=== PATIENT | male | born 1940 | race Caucasian/White ===

== ENCOUNTER → 2023-07-07 09:26 | Outpatient (REF) | payer MEDICARE, SELFPAY ==
[2023-07-07 11:12] LABS: Hematocrit 51.8 % (39.0-52.0); Hemoglobin 17.9 g/dL (13.0-18.0); Mean Corp Hgb Conc. 34.6 g/dL (33.0-37.0); Mean Corpuscular Hgb 30.7 pg (27.0-31.0); Mean Corpuscular Volume 88.7 fL (80.0-94.0); Mean Platelet Volume 10.3 fL (7.4-10.4); Platelet Count 157 10^3/uL (130-400); Red Blood Cell Count 5.84 10^6/uL (4.70-6.10); Red Cell Dist. Width 13.2 % (11.5-14.5); White Blood Cell Count 6.9 10^3/uL (4.8-10.8)
[2023-07-07 11:35] LABS: ALT (SGPT) 14 U/L (0-50); AST (SGOT) 15 U/L (17-59); Albumin 4.2 g/dl (3.5-5.0); Alkaline Phosphatase 85 U/L (38-126); Blood Urea Nitrogen 26 mg/dl (9-20); Calcium 10.3 mg/dl (8.4-10.2); Carbon Dioxide 29 mmol/L (22-30); Chloride 102 mmol/L (98-107); Glucose 152 mg/dl (70-99); HDL Cholesterol 45 mg/dl; LDL Cholesterol, Calculated 81 mg/dl; Potassium 4.6 mmol/L (3.5-5.1); Sodium 141 mmol/L (135-145); Total Bilirubin 0.8 mg/dl (0.2-1.3); Total Cholesterol 175 mg/dl (50-199); Total Protein 6.7 g/dl (6.3-8.2); Triglyceride 245 mg/dl (10-149); Very Low Density Lipoprotein 49 mg/dl (0-30); eGFR > 60.00
[2023-07-07 12:16] LABS: Glycohemoglobin (HgbA1c) 7.4 % (4.0-5.6)
== END ==
LOC: REG 09:26
PROVIDERS: ATTENDING PHYSICIAN Internal Medicine Endocrinology, Diabetes & Metabolism; FAMILY PHYSICIAN Family Medicine
DX: E29.1 Testicular hypofunction (principal); E11.9 Type 2 diabetes mellitus without complications
CPT/HCPCS: 36415; 80053; 80061; 83036; 84403; 85027

== ENCOUNTER 2023-11-14 05:27 | Emergency (ER) | payer MEDICARE, SELFPAY ==
[2023-11-14 05:30] VITALS: BP 144/73
--- NOTE | 2023-11-14 06:16 | ED.GENMED ---
History of Present Illness
General
Chief Complaint: Abdominal Pain
Source: patient
Exam Limitations: none
Time Seen by Provider: 11/14/23 06:01
Nursing documentation reviewed up to this point in time: agreed with
History of Present Illness
History of Present Illness:
83-year-old male presents to the emergency department complaining of right lower quadrant abdominal pain right flank pain for the past 4 weeks. It was worse this morning. He has not seen his doctor for this.
Past History
Past History
ED Past Medical History: HTN and NIDDM
ED Past Surgical History: Orthopedic (Back surgery) and Other (thyroid, hernia surgery)
Social History
Tobacco: Former smoker
Alcohol: None
Drug: None
Personal:
Living: with family
Employment: Retired
Review of Systems
Review of Systems
Allergies reviewed?: Yes
All Other Systems: Not applicable
Constitutional: Reports no symptoms
EENT: Reports no symptoms
Respiratory: Reports no symptoms
Cardiac: Reports no symptoms
ABD/GI: Reports abdominal pain and constipated
: Reports no symptoms
Musculoskeletal: Reports no symptoms
Skin: Reports no symptoms
Neurological: Reports no symptoms
Endocrine: Reports no symptoms
Hematologic/Lymphatic: Reports no symptoms
Psychiatric: Reports no symptoms
Phy Exam
Physical Exam
Physical Exam:
Physical Exam
General: no apparent distress, not acutely ill
Neck: supple. no meningeal signs. normal posterior pharynx
Heart: s1/s2 regular rate and rhythm, no murmur. equal radial
pulses.
HEENT: Pupils equal round reactive to light, EOMI
Lungs: no acute respiratory distress. clear bilaterally
Abdomen: normal bowel sounds. not tender. no CVAT
Neuro: alert and oriented. no focal neurological deficits
Skin: no rash
Psychiatric: well kept. interactive and cooperative
Extremities: no edema. no calf tenderness. negative homans. good distal pulses
Course
Orders/Labs/Results
Orders:
Orders
11/14/23 06:12
Iohexol [Omnipaque] See Protocol PO NOW STA
11/14/23 06:14
CT Abd/pel W Iv And Oral Contr Urgent
Comment:
Reason For Exam: rlq abdominal pain
11/14/23 06:39
Complete Blood Count/With Diff Urgent
Comprehensive Metabolic Panel Urgent
Lipase Urgent
Urinalysis Reflex To Culture Urgent
Date Specimen was Collected: 11/14/23
Time Specimen was Collected: 06:29
Urine Microscopic Reflex Cult Urgent
Urine Culture Urgent
JANELL Source: U
Specimen Description:
Date Specimen was Collected: 11/14/23
Time Specimen was Collected: 06:29
11/14/23 07:36
0.9% Sodium Chloride 1000 ml [Nss] 1,000 ml IV BOLUS
11/14/23 10:14
LevoFLOXacin [Levaquin] 500 mg PO NOW STA
Sodium Zirconium Cyclosilicate [Lokelma] 5 gram PO NOW STA
Abnormal Lab Results
11/14/23
06:39
Absolute Lymphs (auto) 0.7 L 10^3/uL
(1.2-3.4)
Neutrophils % 83.5 H %
(42.2-75.2)
Lymphocytes % 9.0 L %
(20.5-51.1)
Potassium 5.5 H mmol/L
(3.5-5.1)
BUN 33 H mg/dl
(9-20)
Creatinine 1.4 H mg/dL
(0.7-1.3)
Glucose 172 H mg/dl
(70-99)
Total Protein 6.2 L g/dl
(6.3-8.2)
Leukocyte Esterase Rfl 1+ A
(Negative)
Urine WBC (Reflex) 70-80 A /HPF
(0-5)
Urine Bacteria (Reflex) Many A
(Negative)
11/14/23 06:39
11/14/23 06:39
Vital Signs
Initial and Last Documented VS:
Initial Vital Signs
Temp Pulse Resp BP Pulse Ox
99.1 F 112 20 144/73 92
11/14/23 05:30 11/14/23 05:30 11/14/23 05:30 11/14/23 05:30 11/14/23 05:30
Last Documented Vital Signs
Temp Pulse Resp BP Pulse Ox
99.1 F 92 18 137/63 93
11/14/23 05:30 11/14/23 11:02 11/14/23 11:02 11/14/23 11:02 11/14/23 11:02
MDM/Problems Addressed
Differential Diagnosis Includes:
Kidney stone, appendicitis, diverticulitis, UTI
MDM/Problems Addressed:
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 Discussed with Dr. Deal, nephrology who recommend Lokelma 5, hold losartan and follow-up with primary care. Treat with Levaquin.
Chronic conditions affecting care: HTN
Acute Exacerbation and/or Progression of Chronic Illness: HTN
*Radiology
Radiology exam reviewed: radiology read reviewed (CT abdomen pelvis shows an pancreas cyst, chronic perinephric stranding bilateral)
*Pulse Oximetry
Patient hypoxic: no
*Driver Medic Interpretation
Rate: normal
Interpretation: normal
Heart Rate: 80
Rhythm: sinus
*Critical Care Note
Total Time (30-74mins, 75-104mins- exclusive of procedures): Not Applicable
Data Reviewed
Review of Other/Old Records Reveals: Labs (Prior potassium 4.6 on 07/07/2023) and Radiology Studies
Patient Management
Social determinants of health affecting care: Living situation
Discussion with other providers: Hybrid Tester (Nephrology, Dr. Deal)
Escalation/DeEscalation of care consider admission/obs:
Admit not indicated
ED Attending Note
-
Portions of this chart may have been created with voice recognition software.� Occasional wrong word or��sound alike� substitutions may have occurred due to the inherent limitations of voice recognition software.
Discharge Plan
Departure
Patient Disposition: Home (Routine Discharge)
Date of Disposition: 11/14/23
Time of Disposition: 10:17
Patient with high blood pressure during this ER visit?: Yes
Condition: Good
Discharge Problem:
Urinary tract infection, Acute hyperkalemia, Pancreas cyst
Instructions: Urinary Tract Infection, Adult ED, Hyperkalemia, Abdominal Pain, BLOOD PRESSURE
Prescriptions:
New
levofloxacin 500 mg tablet
500 mg PO DAILY 6 Days Qty: 6 0RF
No Action
losartan 50 MG tablet
100 mg PO DAILY
metformin 500 MG tablet
500 mg PO TID
glimepiride 1 MG tablet
1 mg PO BID
levothyroxine 75 MCG tablet
75 mcg PO DAILY
testosterone propionate 100 MG/ML oil
0 mg IM Q2W
hydrochlorothiazide 25 MG tablet
25 mg PO DAILY
Referrals:
Israel Powell MD [Family Provider] - Call in 1-3 days for appt
Activity Restrictions/Additional Instructions:
You have a urinary tract infection and your potassium was slightly elevated. Take Levaquin, the antibiotic that I prescribed for the next 6 days. Stop taking losartan have your primary care doctor recheck your potassium next week. Your potassium
was 5.[address] scan showed a possible cyst in your pancreas that was 11 mm. You will need to get a follow-up CT scan or an MRI in 1 year, ordered by your primary care doctor.
Interventions
Interventions:
*Risk Screen - Suicide Last Done: 11/14/23 05:30
*General Assessment Last Done: 11/14/23 05:30
*Neglect/Abuse Screening Last Done: 11/14/23 05:30
ED- Fall Risk Assessment Last Done: 11/14/23 05:30
*ED COVID-19 Vaccine History Last Done: 11/14/23 05:30
*Nursing Disposition Last Done: 11/14/23 11:11
CX-Diocum-Xgktjkhgzz Assessment Last Done: 11/14/23 06:48
Discharge Date and Time
Discharge Date/Time: 11/14/23 11:07
Print Language: MAORI
[2023-11-14] MEDS: OMNIPAQUE 50 ML PO (06:45)
[2023-11-14 06:48] VITALS: BMI 23.8
[2023-11-14 06:51] LABS: % Basophils 0.4 % (0-2); % Eosinophils 0.3 % (0-6); % Immature Granulocytes 0.5 % (0-0.5); % Monocytes 6.3 % (1.7-9.3); % Neutrophils 83.5 % (42.2-75.2); Absolute Lymphocytes 0.7 10^3/uL (1.2-3.4); Absolute Monocytes 0.5 10^3/uL (0.1-0.6); Absolute Neutrophils 6.5 10^3/uL (1.4-6.5); Hematocrit 46.2 % (39.0-52.0); Hemoglobin 16.3 g/dL (13.0-18.0); Mean Corp Hgb Conc. 35.3 g/dL (33.0-37.0); Mean Corpuscular Hgb 30.5 pg (27.0-31.0); Mean Corpuscular Volume 86.4 fL (80.0-94.0); Mean Platelet Volume 10.1 fL (7.4-10.4); Nucleated Red Blood Cells % 0 % (-); Platelet Count 155 10^3/uL (130-400); Red Blood Cell Count 5.35 10^6/uL (4.70-6.10); Red Cell Dist. Width 12.3 % (11.5-14.5); White Blood Cell Count 7.8 10^3/uL (4.8-10.8)
[2023-11-14 07:01] LABS: ALT (SGPT) 13 U/L (0-50); AST (SGOT) 17 U/L (17-59); Albumin 4.1 g/dl (3.5-5.0); Alkaline Phosphatase 72 U/L (38-126); Blood Urea Nitrogen 33 mg/dl (9-20); Calcium 9.7 mg/dl (8.4-10.2); Carbon Dioxide 29 mmol/L (22-30); Chloride 104 mmol/L (98-107); Estimated Creatinine Clearance 42 ml/min; Glucose 172 mg/dl (70-99); Lipase 61 U/L (23-300); Potassium 5.5 mmol/L (3.5-5.1); Sodium 139 mmol/L (135-145); Total Protein 6.2 g/dl (6.3-8.2); eGFR 49.87
[2023-11-14] MEDS: NSS 1000 IV (08:09)
[2023-11-14 08:25] VITALS: BP 118/89
[2023-11-14 08:37] LABS: Urine Albumin Trace (Neg - Trace); Urine Bilirubin Negative (Negative); Urine Character Clear (Clear); Urine Color Yellow; Urine Glucose Negative (Negative); Urine Ketone Negative (Negative); Urine Leukocyte 1+ (Negative); Urine Nitrite Negative (Negative); Urine Occult Blood Negative (Negative); Urine Urobilinogen Negative (Neg - 1+)
[2023-11-14 09:52] LABS: Urine Amorphous Seen; Urine Bacteria Many (Negative); Urine Red Blood Cell 0-2 /HPF (0-2); Urine White Cell 70-80 /HPF (0-5)
[2023-11-14] MEDS: LOKELMA 5 GRAM PO (10:54)
[2023-11-14] MEDS: LEVAQUIN 500 MG PO (10:54)
[2023-11-14 11:02] VITALS: BP 137/63
== END 2023-11-14 11:07 | disposition home or self-care (01) ==
LOC: EMR 05:27
PROVIDERS: EMERGENCY PHYSICIAN Emergency Medicine; FAMILY PHYSICIAN Family Medicine
DX: N39.0 Urinary tract infection, site not specified (principal); E87.5 Hyperkalemia; K86.2 Cyst of pancreas; I10 Essential (primary) hypertension; E11.9 Type 2 diabetes mellitus without complications; Z87.891 Personal history of nicotine dependence
CPT/HCPCS: 99284; 96360; 74177; 80053; 81003; 81015; 83690; 85025; 87077; 87086; 87186; Q9967

== ENCOUNTER → 2023-12-22 09:24 | Outpatient (REF) | payer MEDICARE, SELFPAY ==
[2023-12-22 10:57] LABS: Hematocrit 48.1 % (39.0-52.0); Hemoglobin 16.6 g/dL (13.0-18.0); Mean Corp Hgb Conc. 34.5 g/dL (33.0-37.0); Mean Corpuscular Hgb 30.8 pg (27.0-31.0); Mean Corpuscular Volume 89.2 fL (80.0-94.0); Mean Platelet Volume 10.5 fL (7.4-10.4); Platelet Count 160 10^3/uL (130-400); Red Blood Cell Count 5.39 10^6/uL (4.70-6.10); Red Cell Dist. Width 13.1 % (11.5-14.5); White Blood Cell Count 5.8 10^3/uL (4.8-10.8)
[2023-12-22 12:02] LABS: Glycohemoglobin (HgbA1c) 6.9 % (4.0-5.6)
[2023-12-22 12:03] LABS: ALT (SGPT) 14 U/L (0-50); AST (SGOT) 22 U/L (17-59); Albumin 4.4 g/dl (3.5-5.0); Alkaline Phosphatase 87 U/L (38-126); Blood Urea Nitrogen 24 mg/dl (9-20); Calcium 10.2 mg/dl (8.4-10.2); Carbon Dioxide 28 mmol/L (22-30); Chloride 103 mmol/L (98-107); Glucose 126 mg/dl (70-99); HDL Cholesterol 51 mg/dl; LDL Cholesterol, Calculated 91 mg/dl; Potassium 5.4 mmol/L (3.5-5.1); Sodium 144 mmol/L (135-145); Total Bilirubin 0.9 mg/dl (0.2-1.3); Total Cholesterol 169 mg/dl (50-199); Total Protein 6.7 g/dl (6.3-8.2); Triglyceride 138 mg/dl (10-149); Very Low Density Lipoprotein 27 mg/dl (0-30); eGFR 54.51
[2023-12-22 12:19] LABS: PSA, Total - Diagnostic 3.12 ng/ml (0.0-4.0)
== END ==
LOC: REG 09:24
PROVIDERS: ATTENDING PHYSICIAN Internal Medicine Endocrinology, Diabetes & Metabolism; FAMILY PHYSICIAN Family Medicine; REFERRING PHYSICIAN Specialist
DX: E29.1 Testicular hypofunction (principal); E11.9 Type 2 diabetes mellitus without complications; R97.20 Elevated prostate specific antigen [PSA]
CPT/HCPCS: 36415; 80053; 80061; 83036; 84153; 84403; 85027

== ENCOUNTER → 2024-05-03 12:22 | Outpatient (REF) | payer MEDICARE, SELFPAY ==
[2024-05-03 17:44] LABS: Microalbumin, Random Urine 12.7 mg/dl (0.6-1.7); Microalbumin/creatinine Ratio 119.9 mg/g
== END ==
LOC: CLAB 12:22
PROVIDERS: ATTENDING PHYSICIAN Family Medicine
DX: E11.9 Type 2 diabetes mellitus without complications (principal)
CPT/HCPCS: 82043; 82570

== ENCOUNTER → 2024-06-24 08:43 | Outpatient (REF) | payer MEDICARE, SELFPAY ==
[2024-06-24 09:22] LABS: Hematocrit 49.8 % (39.0-52.0); Mean Corp Hgb Conc. 32.1 g/dL (33.0-37.0); Mean Corpuscular Hgb 30.6 pg (27.0-31.0); Mean Corpuscular Volume 95.2 fL (80.0-94.0); Mean Platelet Volume 10.2 fL (7.4-10.4); Platelet Count 147 10^3/uL (130-400); Red Blood Cell Count 5.23 10^6/uL (4.70-6.10); Red Cell Dist. Width 14.1 % (11.5-14.5); White Blood Cell Count 6.1 10^3/uL (4.8-10.8)
[2024-06-24 11:37] LABS: ALT (SGPT) 18 U/L (0-50); AST (SGOT) 18 U/L (17-59); Albumin 4.3 g/dl (3.5-5.0); Alkaline Phosphatase 89 U/L (38-126); Blood Urea Nitrogen 26 mg/dl (9-20); Calcium 9.9 mg/dl (8.4-10.2); Carbon Dioxide 26 mmol/L (22-30); Chloride 102 mmol/L (98-107); Glucose 106 mg/dl (70-99); HDL Cholesterol 40 mg/dl; LDL Cholesterol, Calculated 66 mg/dl; Potassium 4.9 mmol/L (3.5-5.1); Sodium 139 mmol/L (135-145); Total Cholesterol 146 mg/dl (50-199); Total Protein 6.6 g/dl (6.3-8.2); Triglyceride 200 mg/dl (10-149); Very Low Density Lipoprotein 40 mg/dl (0-30); eGFR 59.63
[2024-06-24 12:03] LABS: TSH 2.97 uIU/ml (0.47-4.68)
[2024-06-24 12:37] LABS: Glycohemoglobin (HgbA1c) 6.7 % (4.0-5.6)
== END ==
LOC: REG 08:43
PROVIDERS: ATTENDING PHYSICIAN Internal Medicine Endocrinology, Diabetes & Metabolism; FAMILY PHYSICIAN Family Medicine
DX: E29.1 Testicular hypofunction (principal); E11.9 Type 2 diabetes mellitus without complications; E89.0 Postprocedural hypothyroidism
CPT/HCPCS: 36415; 80053; 80061; 83036; 84403; 84443; 85027

== ENCOUNTER → 2024-09-30 08:49 | Outpatient (REF) | payer MEDICARE, SELFPAY ==
[2024-09-30 13:04] LABS: Blood Urea Nitrogen 29 mg/dl (9-20); Carbon Dioxide 27 mmol/L (22-30); Chloride 110 mmol/L (98-107); Glucose 126 mg/dl (70-99); Potassium 4.8 mmol/L (3.5-5.1); Sodium 143 mmol/L (135-145); eGFR 54.17
== END ==
LOC: REG 08:49
PROVIDERS: ATTENDING PHYSICIAN Physician Assistant; FAMILY PHYSICIAN Family Medicine
DX: K86.2 Cyst of pancreas (principal)
CPT/HCPCS: 36415; 80048

== ENCOUNTER → 2024-10-05 10:35 | Outpatient (REF) | payer MEDICARE, SELFPAY | LOC: RAD 10:35 | PROVIDERS: ATTENDING PHYSICIAN Physician Assistant; FAMILY PHYSICIAN Family Medicine | DX: K86.2 Cyst of pancreas (principal); K43.9 Ventral hernia without obstruction or gangrene | CPT/HCPCS: 74177; Q9967 ==

== ENCOUNTER → 2024-12-23 07:48 | Outpatient (REF) | payer MEDICARE, SELFPAY ==
[2024-12-23 09:00] LABS: Hematocrit 44.4 % (39.0-52.0); Hemoglobin 15.0 g/dL (13.0-18.0); Mean Corp Hgb Conc. 33.8 g/dL (33.0-37.0); Mean Corpuscular Volume 89.9 fL (80.0-94.0); Platelet Count 186 10^3/uL (130-400); Red Cell Dist. Width 13.0 % (11.5-14.5)
[2024-12-23 11:10] LABS: ALT (SGPT) 16 U/L (0-50); AST (SGOT) 16 U/L (17-59); Albumin 4.2 g/dl (3.5-5.0); Alkaline Phosphatase 74 U/L (38-126); Blood Urea Nitrogen 22 mg/dl (9-20); Calcium 9.9 mg/dl (8.4-10.2); Carbon Dioxide 29 mmol/L (22-30); Chloride 105 mmol/L (98-107); Glucose 122 mg/dl (70-99); HDL Cholesterol 45 mg/dl; LDL Cholesterol, Calculated 93 mg/dl; Potassium 4.9 mmol/L (3.5-5.1); Sodium 139 mmol/L (135-145); Total Protein 6.7 g/dl (6.3-8.2); Very Low Density Lipoprotein 39 mg/dl (0-30); eGFR > 60.00
[2024-12-23 11:40] LABS: TSH 2.84 uIU/ml (0.47-4.68)
[2024-12-23 13:29] LABS: Glycohemoglobin (HgbA1c) 7.4 % (4.0-5.6)
== END ==
LOC: REG 07:48
PROVIDERS: ATTENDING PHYSICIAN Internal Medicine Endocrinology, Diabetes & Metabolism; FAMILY PHYSICIAN Family Medicine
DX: E29.1 Testicular hypofunction (principal); E11.9 Type 2 diabetes mellitus without complications; E89.0 Postprocedural hypothyroidism
CPT/HCPCS: 36415; 80053; 80061; 83036; 84403; 84443; 85027

== ENCOUNTER 2024-12-25 17:09 | Inpatient (IN) | payer MEDICARE, SELFPAY ==
[2024-12-25 15:48] VITALS: BP 130/74
--- NOTE | 2024-12-25 16:33 | ED.GENMED ---
History of Present Illness
General
Chief Complaint: Musculo-Skeletal Complaint
Source: patient
Time Seen by Provider: 12/25/24 16:04
History of Present Illness
History of Present Illness:
Patient tripped and fell in the garage. No syncope. Landed on his left hip. No other injury or complaint.
Past History
Past History
ED Past Medical History: HTN and NIDDM
ED Past Surgical History: Orthopedic (Back surgery) and Other (thyroid, hernia surgery)
Social History
Tobacco: Former smoker
Alcohol: None
Drug: None
Personal:
Living: with family
Employment: Retired
Review of Systems
Review of Systems
All Other Systems: Not applicable
Respiratory: Reports no symptoms
Cardiac: Reports no symptoms
ABD/GI: Reports no symptoms
Phy Exam
Physical Exam
Physical Exam:
TRAUMA EXAM:
VITAL SIGNS: Vital signs reviewed, cooperative
DISTRESS: No active disease
EYES: Pupils reactive, no orbital trauma
NOSE: No deformity or epistaxis
FACE AND SCALP: No scalp or facial trauma, external canals no blood
NECK: Supple nontender
BACK: Back nontender, pelvis stable to compression
RESPIRATORY: No distress, breath sounds normal, no tender chest wall
CARDIAC: No murmur, pulses equal and strong
ABDOMEN: Soft nontender bowel sounds normal
SKIN: Skin intact no bleeding, color normal
EXTREMITIES: Mildly shortened and mildly externally rotated left leg.
NEUROLOGICAL: Alert, oriented, no motor deficits
PSYCH: Mood affect normal
Course
Orders/Labs/Results
Orders:
Orders
12/25/24 Dinner
Regular
At Your Request: Limited Participation
12/25/24 15:52
CR Hip - LT w/wo Pel 2-3 Vw* Urgent
Comment:
Reason For Exam: pain
Include a pelvis x-ray?: Yes
12/25/24 16:43
Admit/Transfer Patient As Directed
Co-Sign Provider:
Level of Care: Inpatient admission
Assign to:: Medical/Surgical
Physician / Group: amy
Diagnosis: hip fracture
Reason for Hospitalization: hip fracture
Expected length of stay greater than two midnights?: Yes
ELOS- Estimated Length of Stay in days: 2
I certify the patient meets the requirements for IP care: Yes
PRN Pain Medication Management As Directed
May give lesser potent ordered pain med per pt: Yes
preference::
Protocol:: Medication orders for pain may be administered in a
manner that supports deferring to patient preference
when the pt is:
- Requesting an ordered lesser potent pain medication.
Least to most potent pain medications are defined
as: acetaminophen < NSAID < tramadol < opioids
(morphine, oxycodone, hydromorphone).
- Requesting a lesser dose of the same medication IF
ORDERED.
- Requesting a less intrusive route of administration
if both routes are prescribed by the provider (PO <
IV).
12/25/24 16:44
Code Status As Directed
Resuscitation Status: Full Code
12/25/24 17:16
Basic Metabolic Panel Urgent
Complete Blood Count/With Diff Urgent
12/25/24 17:49
Acetaminophen [Tylenol] 650 mg PO Q4HPRN PRN
Dextrose 50%-Water [Dextrose 50% Syringe] 12.5 grams IV [id number] PRN
Glucagon [GlucaGen] 1 mg IM PRN PRN
HYDROmorphone [Dilaudid] 0.5 mg IV Q4HPRN PRN
12/25/24 17:49
ORTHOPEDIC CONSULT Routine
Consulting Provider: Dickson Small
Was physician already notified: Yes
Activity As Directed
Activity Level: As Tolerated
Bedside Glucose Monitoring As Directed
Frequency: AC&HS
Additional Instructions:: Change to q6h if pt on TPN, tube feeding or not eating
Pneumatic Compression Sleeves As Directed
Type: Knee high
Vital Signs As Directed
Frequency: Per unit guidelines
DX Deep Vein Thrombosis Video Routine
12/26/24 Breakfast
NPO
Allow oral meds: Yes
Allow clear liquids: No
Insulin Aspart Corrective Low [Novolog Flexpen-Low Resistance] See Protocol SC Q6
12/26/24 06:41
Complete Blood Count/With Diff IN AM
Comprehensive Metabolic Panel IN AM
Vital Signs
Initial and Last Documented VS:
Initial Vital Signs
Temp Pulse Resp BP Pulse Ox
98.2 F 96 16 130/74 93
12/25/24 15:48 12/25/24 15:48 12/25/24 15:48 12/25/24 15:48 12/25/24 15:48
Last Documented Vital Signs
Temp Pulse Resp BP Pulse Ox
98.1 F 104 18 129/73 93
12/25/24 23:09 12/25/24 23:09 12/25/24 23:09 12/25/24 23:09 12/25/24 23:09
*Pulse Oximetry
SaO2: 93
Oxygen Mode of Delivery: Room air
Patient hypoxic: no (93)
*Critical Care Note
Total Time (30-74mins, 75-104mins- exclusive of procedures): Not Applicable
ED Attending Note
-
Portions of this chart may have been created with voice recognition software.� Occasional wrong word or��sound alike� substitutions may have occurred due to the inherent limitations of voice recognition software.
Discharge Plan
Departure
Patient Disposition: Admit
Date of Disposition: 12/25/24
Time of Disposition: 17:03
Presentation/result/management discussed w/ accepting MD/DO: Orthopedics
Discharge Problem:
Left intertrochanteric fracture
Interventions
Interventions:
*Risk Screen - Suicide Last Done: 12/25/24 15:48
*General Assessment Last Done: 12/25/24 16:18
*ED- Fall Risk Assessment Last Done: 12/25/24 15:48
*ED COVID-19 Vaccine History Last Done: 12/25/24 18:03
*Nursing Disposition Last Done: 12/25/24 17:49
ED-Musculoskeletal Assessment Last Done: 12/25/24 16:18
Discharge Date and Time
Discharge Date/Time: 12/25/24 17:50
--- NOTE | 2024-12-25 16:45 | HPS.HSE ---
Family Physician
-
Family Physician:
Chief Complaint
-
left hip pain
History of Present Illness
84-year-old male past medical history of hypertension, diabetes, hypothyroidism, benign brainstem lesion, presenting with trip and fall in the garage. Denies dizziness or passing out. Landed on his left hip. Patient has pain in his left hip.
He is a former smoker. Drinks alcohol occasionally.
Medical History
Past Medical History
Past Medical History: Reports Other (hypertension, diabetes, hypothyroidism, benign brainstem lesion,)
Past Surgical History: Reports Other (thyroid resection )
Social History
Tobacco: Former Smoker
Alcohol: None
Drug: None
Family History
Family History: Not pertinent
Allergies / Home Medications
Allergies reflects when Allergies were last updated in [employer].
Home Medications with original date entered in [employer]
Allergy/Medication List:
Allergies
Allergy/AdvReac Type Severity Reaction Status Date / Time
No Known Allergies Allergy Verified 11/14/23 05:30
Home Medications
glimepiride 1 mg tablet 1 mg PO BID 04/05/19
hydrochlorothiazide 25 mg tablet 25 mg PO DAILY 04/05/19
levothyroxine 75 mcg tablet 75 mcg PO DAILY 04/05/19
losartan 50 mg tablet 100 mg PO DAILY 04/05/19
metformin 500 mg tablet 500 mg PO TID 04/05/19
testosterone propionate 100 mg/mL intramuscular oil 0 mg IM Q2W 04/05/19
levofloxacin 500 mg tablet 500 mg PO DAILY 6 days #6 tabs 11/14/23
Review of Systems
-
History Source: Patient
A 12 point ROS was completed and negative except as noted: Yes
Constitutional: Reports No Symptoms
EENT: Reports No Symptoms
Respiratory: Reports No Symptoms
Cardiac: Reports No Symptoms
Abdomen/GI: Reports No Symptoms
: Reports No Symptoms
Musculoskeletal: Reports No Symptoms
Skin: Reports No Symptoms
Neurological: Reports No Symptoms
Endocrine: Reports No Symptoms
Hematologic/Lymphatic: Reports No Symptoms
Psych: Reports No Symptoms
Physical Exam
Vital Signs
Vital Signs
Temp Pulse Resp BP Pulse Ox
98.2 F 96 16 130/74 93
12/25/24 15:48 12/25/24 15:48 12/25/24 15:48 12/25/24 15:48 12/25/24 16:34
Physical Exam
General: Well Developed, Well Nourished and No Apparent Distress
HEENT: NormoCephalic, Moist mucous membranes and Atraumatic
Respiratory: Clear
Cardiac: S1/S2 and Regular Rhythm; No Murmur or Rub
GI: Soft, Non Tender, Non Distended and Normal Bowel Sounds; No Organomegaly
Rectal: Deferred by Provider
Musculoskeletal: No Clubbing, No Cyanosis and No Edema
Skin: No Rash
Neuro: Nonfocal/grossly intact
Data Reviewed
-
Lab Data: Labs Reviewed by me
Old Records: Reviewed
Impression/Plan
-
IMPRESSION:
PLAN:
# Left intertrochanteric hip fracture
- Ortho consulted
- N.p.o. postmidnight for potential surgery tomorrow
- Pain control with Tylenol, Dilaudid as needed
- Patient low risk for post cardiac complication
Essential hypertension
- Continue hydrochlorothiazide, losartan
Type 2 diabetes
- Hold glimepiride, metformin
- Insulin sliding scale
Thyroid nodule status post resection/hypothyroidism
- Continue levothyroxine
History of benign brainstem lesion
Full code
DVT prophylaxis�SCDs
Regular diet
[2024-12-25 17:31] LABS: Hematocrit 40.7 % (39.0-52.0); Hemoglobin 13.9 g/dL (13.0-18.0); Mean Corp Hgb Conc. 34.2 g/dL (33.0-37.0); Mean Corpuscular Volume 88.9 fL (80.0-94.0); Nucleated Red Blood Cells % 0 % (-); Platelet Count 169 10^3/uL (130-400); Red Cell Dist. Width 12.9 % (11.5-14.5)
[2024-12-25 17:48] VITALS: BP 138/78
[2024-12-25 17:54] LABS: Glucose - Point of Care 113 mg/dl (70-99)
[2024-12-25 17:58] VITALS: BMI 24.1
--- NOTE | 2024-12-25 18:01 | PTCARENOTE ---
put arrived to floor. Aox3. pleasant. 18g RAC. changed to gown, skin assessed. family present
[2024-12-25 18:02] VITALS: BP 152/88
[2024-12-25 18:16] LABS: Blood Urea Nitrogen 26 mg/dl (9-20); Calcium 9.6 mg/dl (8.4-10.2); Carbon Dioxide 28 mmol/L (22-30); Chloride 108 mmol/L (98-107); Estimated Creatinine Clearance 47 ml/min; Glucose 131 mg/dl (70-99); Potassium 4.8 mmol/L (3.5-5.1); Sodium 140 mmol/L (135-145); eGFR 59.63
[2024-12-25] MEDS: DILAUDID 0.5 MG IV (18:26)
[2024-12-25 21:42] LABS: Glucose - Point of Care 222 mg/dl (70-99)
[2024-12-25 23:09] VITALS: BP 129/73
[2024-12-26] VITALS (11 sets, daily range): BP systolic 102–138; BP diastolic 53–79
[2024-12-26] MEDS: DILAUDID 0.5 MG IV ×3 (00:30→08:45)
[2024-12-26 05:38] LABS: Glucose - Point of Care 209 mg/dl (70-99)
[2024-12-26] MEDS: NOVOLOG FLEXPEN-LOW RESISTANCE 2 UNITS SC (05:45)
[2024-12-26 07:31] LABS: Hematocrit 41.3 % (39.0-52.0); Hemoglobin 13.9 g/dL (13.0-18.0); Mean Corp Hgb Conc. 33.7 g/dL (33.0-37.0); Mean Corpuscular Volume 90.2 fL (80.0-94.0); Nucleated Red Blood Cells % 0 % (-); Platelet Count 177 10^3/uL (130-400); Red Cell Dist. Width 12.8 % (11.5-14.5)
--- NOTE | 2024-12-26 07:53 | W.PN.UPDATE ---
Update Note
Progress Note Update
Patient seen and examined. Chart reviewed.
84 yo F left femoral neck fracture
NWB LLE
NPO
Hold anticoagulation
Pain control
Medical management per primary team
Plan: To OR today for left hip hemiarthroplasty pending OR availability and medical clearance
Formal consult note to follow
[2024-12-26 08:16] LABS: ALT (SGPT) 19 U/L (0-50); AST (SGOT) 16 U/L (17-59); Albumin 3.7 g/dl (3.5-5.0); Alkaline Phosphatase 70 U/L (38-126); Blood Urea Nitrogen 26 mg/dl (9-20); Calcium 9.5 mg/dl (8.4-10.2); Carbon Dioxide 25 mmol/L (22-30); Chloride 107 mmol/L (98-107); Estimated Creatinine Clearance 47 ml/min; Glucose 228 mg/dl (70-99); Potassium 4.5 mmol/L (3.5-5.1); Sodium 137 mmol/L (135-145); Total Protein 6.0 g/dl (6.3-8.2); eGFR 59.63
--- NOTE | 2024-12-26 12:28 | CM ---
Patient seen on [address] earlier today. Patient states that he lives with his in a 2 story home with a walker and a cane that he does not use any longer. Patient for surgery today. Patient PCP is Dr. Powell and he uses the [facility] on [facility] for
pharmacy needs. Patient indicated that he would be open to SNF if recommended. CM will continue to follow for discharge planning needs.
Plan; SNF vs home with VN pending therapy recommendations/Medical treatment plan
[2024-12-26 12:51] LABS: Glucose - Point of Care 176 mg/dl (70-99)
[2024-12-26] MEDS: NOVOLOG FLEXPEN-LOW RESISTANCE 1 UNITS SC (12:56)
--- NOTE | 2024-12-26 13:09 | W.PN.HOSP.TC ---
Today's Communication/Plan
-
for OR today
maintain on insulin sliding scale
Assessment / Plan
Assessment / Plan
# Left intertrochanteric hip fracture
-Left hip x-ray reviewed
-Ortho planning to take patient to the OR today
-Pain control with Tylenol, Dilaudid as needed
Essential hypertension
- Continue hydrochlorothiazide, losartan
Type 2 diabetes
- Hold glimepiride, metformin
- Insulin sliding scale
Thyroid nodule status post resection/hypothyroidism
- Continue levothyroxine
History of benign brainstem lesion
Full code
DVT prophylaxis�SCDs
Anticipated Discharge: 24 - 48 hours
Subjective/Interval History
-
Date of Service: December 26, 2024
Resting comfortably in bed
Left hip pain on activity
No other issues reported
Objective Data
-
Labs:
Laboratory Results
12/26/24
06:41
WBC 9.5
Hgb 13.9
Hct 41.3
Plt Count 177
Sodium 137
Potassium 4.5
Chloride 107
Carbon Dioxide 25
BUN 26 H
Creatinine 1.2
Glucose 228 H
Calcium 9.5
Total Bilirubin 1.0
AST 16 L
ALT 19
Alkaline Phosphatase 70
Vital Signs:
Vital Signs
Temp Pulse Resp BP Pulse Ox
98.1 F 104 18 129/73 98
12/25/24 23:09 12/25/24 23:09 12/25/24 23:09 12/25/24 23:09 12/26/24 08:49
I&O
12/25/24 12/26/24 12/27/24
06:59 06:59 06:59
Intake Total 240 / 240
Output Total 650 / 650 300 / 300
Balance -410 / -410 -300 / -300
Review of Systems
-
Respiratory: Reports No Symptoms
Cardiac: Reports No Symptoms
Abdomen/GI: Reports No Symptoms
Physical Exam
-
General: Negative Appears in Distress
HEENT: Negative Oxygen
Musculoskeletal: No Clubbing, No Cyanosis and No Edema
Neuro: Awake, Alert, Oriented and No Motor Deficits
--- NOTE | 2024-12-26 16:40 | OR.RPT ---
Operative Report
Operative Report
Date
12/26/2024
Anesthesia Type:
General
Operative Indications:
Displaced left femoral neck fracture
Operative Findings :
Same
Complications:
None
Implants:
[employer] size 13 femoral stem, 52 mm bipolar shell 28+7 head
Procedure and Technique:
Cemented left hip hemiarthroplasty
INDICATIONS FOR PROCEDURE:
Patient is an 84-year-old male sustained a mechanical fall was ultimately diagnosed with a displaced left femoral neck fracture. He was admitted to the hospitalist service. Orthopedics was consulted for further evaluation and treatment. I did
have a long detailed discussion with the patient regarding diagnosis and treatment options. We discussed both surgical and nonsurgical options. We discussed both fixation and arthroplasty options. We discussed both hemiarthroplasty and total
arthroplasty options. We also discussed specifically cementing. After discussion we mutually elected to proceed with cemented left hip hemiarthroplasty. We discussed risks benefits and alternatives to surgery. Discussed the usual expected
perioperative postoperative course. No guarantees were given. After discussion written informed consent was obtained.
OPERATIVE PROCEDURE:
Patient was seen and identified in the preoperative holding area. Operative extremity was marked. Patient was taken to the operating room and anesthesia was administered by the anesthesia providers. Patient was then placed in a lateral decubitus
position with the use of a corrales bag. All bony prominences were well-padded. Operative extremity was then prepped and draped in normal sterile fashion. Timeout was performed again identifying the correct operative extremity. Preoperative
antibiotics were addressed. Standard posterior approach to the hip was taken. Sharp dissection was carried through skin and subcutaneous tissues and deep fascial layer. Hemostasis was achieved with electrocautery. Hip was then placed on slight
internal rotation to place the external rotators on stretch. Piriformis was identified and a Cobra retractor was then placed under the gluteus medius and minimus. Piriformis and short external rotators were taken down and tagged. A T capsulotomy
was then performed and capsular leaflets were also tagged. The fracture was identified and a freshen up cut was performed. The femoral head was then removed and sized. Appropriately sized ball on a stick was then placed into the acetabulum and
felt to have appropriate suction fit. Attention was then turned to the proximal femur where soft tissue remnants were removed from the piriformis fossa. Remnant neck was removed with the use of a cookie cutter. Canal finder was then placed in
addition to lateralizing reamer. Stepwise broaching was then performed to the appropriate size. Implants were then trialed and found to have appropriate stability in deep flexion, internal rotation, shuck and adduction. Implants were then removed
and canal was copiously irrigated normal saline solution. Cement restrictor was then placed. Pressurized cement was then placed into the femoral canal and appropriately sized femoral stem was then placed in the appropriate version. After cement
had hardened, final implants were then placed and the hip was again taken through range of motion and found to be quite stable. Satisfied with the extent of surgery, wound was copiously irrigated with normal saline solution and a Betadine solution.
The capsule, piriformis and short external rotators were then repaired through osseous tunnels into the greater trochanter. Wound was then closed in a layered fashion utilizing #1 strata fix, 2-0 Vicryl for subcutaneous layer and rehan for skin.
Aquacel dressing was then placed. Anesthesia was reversed and patient was taken to PACU in a stable condition. Postoperative plans will include weightbearing to the patient's tolerance in the operative extremity. Posterior hip precautions will
be advised. Recommend DVT prophylaxis consisting of renally dosed Lovenox daily for 28 days unless patient is already on baseline anticoagulation. Will plan to see patient back in 2 weeks for postoperative evaluation with planned removal of
rehan.
Disposition:
PACU, stable condition
[2024-12-26 16:43] LABS: Glucose - Point of Care 201 mg/dl (70-99)
[2024-12-26] MEDS: NOVOLOG vial 1 UNITS SC (17:05)
[2024-12-26] MEDS: BENADRYL 25 MG IV (17:26)
[2024-12-26] MEDS: NOVOLOG FLEXPEN-LOW RESISTANCE SC (18:47)
[2024-12-26] MEDS: NORMOSOL-R/PLASMALYTE-A 1000 IV (18:48)
[2024-12-26 21:01] LABS: Glucose - Point of Care 271 mg/dl (70-99)
[2024-12-26] MEDS: FLUSH (NSS) 2 FLUSH IV (21:20)
[2024-12-26] MEDS: ANCEF 5 IV (21:20)
[2024-12-26] MEDS: NOVOLOG FLEXPEN 4 UNITS SC (21:21)
[2024-12-26] MEDS: COLACE 100 MG PO (21:21)
[2024-12-27] MEDS: NORMOSOL-R/PLASMALYTE-A 1000 IV (04:28)
[2024-12-27] MEDS: ANCEF 5 IV (05:48)
--- NOTE | 2024-12-27 07:04 | CON.ORTHO ---
Consultation
-
Date/Time Consultation Performed: 12/26/2024 745 AM
Consultation - Orthopedics
History
HPI: 84-year-old male history of diabetes presented to the emergency department status post fall with complaints of left hip pain and inability to bear weight. He subsequently diagnosed with a left displaced femoral neck fracture. He was mated to
the hospital service and orthopedics is consulted for further evaluation and treatment. Patient reports that he was at home when he sustained a trip and fall down some stairs. Localizes pain to the left groin. Pain is made worse with direct
palpation of the affected area with any motion to the left hip or attempted ambulation. Patient does report to me that he does use a cane at baseline. He is a retired cloud solutions architect.
Allergies / Home Medications
Past medical history: Diabetes, hypothyroidism, hypertension
Past surgical history: Lumbar spine surgery, thyroid surgery, hernia surgery
Social history: Former smoker, lives with , retired cloud solutions architect
Family history: Not pertinent
Allergy/AdvReac Type Severity Reaction Status Date / Time
No Known Allergies Allergy Verified 11/14/23 05:30
�Medication �Instructions �Recorded
glimepiride 1 mg tablet 1 mg PO BID Diabetes 04/05/19
hydrochlorothiazide 25 mg tablet 25 mg PO DAILY Blood Pressure 04/05/19
levothyroxine 75 mcg tablet 75 mcg PO DAILY@06 Thyroid 04/05/19
metformin 500 mg tablet 500 mg PO TID @ 0800,1200,1700 04/05/19
Diabetes
losartan 100 mg tablet 100 mg PO DAILY Blood Pressure 12/25/24
testosterone 1 pump topical DAILY Hormonal Agent 12/25/24
Vital Signs / Lab Results
Temp Pulse Resp BP Pulse Ox
98.2 F 105 16 109/64 98
12/26/24 23:35 12/26/24 23:35 12/26/24 23:35 12/26/24 23:35 12/26/24 23:54
10 point review systems reviewed and negative unless otherwise stated
General: Pleasant, no acute distress at rest
Musculoskeletal left lower extremity
Skin intact, no erythema or ecchymotic staining
Extremity shortened externally rotated
Tender to palpation of groin and lateral trochanteric flare
No palpable ipsilateral knee effusion
Positive EHL, FHL, ankle dorsiflexion, plantarflexion
Brisk cap refill
No other areas of bony tenderness palpation or crepitus of long bones or joints
Diagnostic studies
X-rays left hip reviewed show displaced left transcervical femoral neck fracture
Assessment / Plan
84-year-old male status post fall displaced left femoral neck fracture. I do long detailed discussion with the patient regarding diagnosis and treatment options. Discussed both fixation and arthroplasty options. We discussed at length both
hemiarthroplasty and total hip arthroplasty options. We discussed cementing as well. Patient did read quite a bit about this on his own as well. He was in favor of proceeding with cemented left hip hemiarthroplasty. We discussed risks benefits
and alternatives of surgery. Discussed the usual and expected perioperative postoperative course. After discussion written informed consent was obtained. No guarantees were given.
Nonweightbearing left lower extremity
N.p.o.
Please hold anticoagulation
Medical management per primary team
Plan: 2 OR 12/26/2024 pending OR availability of medical clearance
--- NOTE | 2024-12-27 07:10 | W.PN.ORTHO ---
Addendum entered and electronically signed by Dickson Small MD 12/27/24 07:14:
DVT prophylaxis: Recommend renally dosed Lovenox x 28 days
Original Note:
Today's Communication / Plan
-
84-year-old male postop day 1 status post left hip hemiarthroplasty doing well
Weightbearing as tolerated left lower extremity
PT OT
Posterior hip precautions
Abduction pillow in bed
Pain control
Medical management per primary team
Plan: Follow-up outpatient 2 to 3 weeks repeat clinical assessment removal of rehan
Subjective
.
.:
Patient resting comfortably this morning. Reports pain is well-controlled. Reports that has not yet been out of bed.
Vital Signs and Labs
.
Vital Signs and Labs:
Temp Pulse Resp BP Pulse Ox
98.2 F 105 16 109/64 98
12/26/24 23:35 12/26/24 23:35 12/26/24 23:35 12/26/24 23:35 12/26/24 23:54
Physical Exam
-
Musculoskeletal left lower extremity
Dressings with minimal bloody drainage
Mild swelling left thigh
Positive EHL, FHL, ankle dorsiflexion, plantarflexion
Sensation intact to light touch in all distributions distally
Abduction pillow in place
Leg lengths clinically approximately equal in bed
Brisk cap refill
[2024-12-27 07:26] LABS: Glucose - Point of Care 342 mg/dl (70-99)
[2024-12-27 07:32] LABS: Hematocrit 38.8 % (39.0-52.0); Hemoglobin 13.4 g/dL (13.0-18.0); Mean Corp Hgb Conc. 34.5 g/dL (33.0-37.0); Mean Corpuscular Volume 91.9 fL (80.0-94.0); Platelet Count 161 10^3/uL (130-400); Red Cell Dist. Width 12.7 % (11.5-14.5)
[2024-12-27 07:35] VITALS: BP 102/68
--- NOTE | 2024-12-27 07:46 | PTCARENOTE ---
Attempted to wean off oxygen, but room air O2 saturation 88%. Placed back on 2L.
[2024-12-27 07:58] LABS: Blood Urea Nitrogen 39 mg/dl (9-20); Calcium 8.8 mg/dl (8.4-10.2); Carbon Dioxide 27 mmol/L (22-30); Chloride 102 mmol/L (98-107); Estimated Creatinine Clearance 38 ml/min; Glucose 327 mg/dl (70-99); Potassium 4.8 mmol/L (3.5-5.1); Sodium 135 mmol/L (135-145); eGFR 45.62
[2024-12-27] MEDS: COLACE 100 MG PO ×2 (08:02→21:22)
[2024-12-27] MEDS: NOVOLOG FLEXPEN-LOW RESISTANCE 4 UNITS SC (08:02)
[2024-12-27] MEDS: TYLENOL 650 MG PO (08:14)
--- NOTE | 2024-12-27 09:06 | CM ---
Addendum entered by Cristina Ng RN 12/27/24 12:36:
CM met with patient in room. Patient is agreeable to [facility]. CM updated [facility] documentation liaison.
PLAN: Home with [facility].
Original Note:
Cm met with patient in room. Patient is hopeful for home discharge with home care. CM will await PT/OT recommendations.
--- NOTE | 2024-12-27 10:17 | W.PN.HOSP.TC ---
Today's Communication/Plan
-
therapy and d/c planning
lovenox teaching
Assessment / Plan
Assessment / Plan
pt is an 84 year old male
mechanical fall with traumatic Left intertrochanteric hip fracture--s/p OR--await therapy input to decide on discharge destination--follow up with ortho--apprec input--Pain control with Tylenol, Dilaudid as needed
Essential hypertension- Continue hydrochlorothiazide, losartan
Type 2 diabetes--restart glimepiride, metformin- Insulin sliding scale
Thyroid nodule status post resection/hypothyroidism- Continue levothyroxine
History of benign brainstem lesion
code status--Full code
DVT prophylaxis�renally dosed lovenox x 28 days per ortho--will need teaching
Anticipated Discharge: Within 24 hours
Subjective/Interval History
-
Date of Service: December 27, 2024
pt doing well--sitting in the chair
Objective Data
-
Labs:
Laboratory Results
12/27/24
07:01
WBC 9.7
Hgb 13.4
Hct 38.8 L
Plt Count 161
Sodium 135
Potassium 4.8
Chloride 102
Carbon Dioxide 27
BUN 39 H
Creatinine 1.5 H
Glucose 327 H
Calcium 8.8
Vital Signs:
max temp for 24 hours
12/26/24
17:45
Temp 99.1 F
Vital Signs
Temp Pulse Resp BP Pulse Ox
98.1 F 101 18 102/68 98
12/27/24 07:35 12/27/24 07:35 12/27/24 07:35 12/27/24 07:35 12/27/24 07:35
I&O
12/26/24 12/27/24 12/28/24
06:59 06:59 06:59
Intake Total 240 / 240 1200 / 1200
Output Total 650 / 650 750 / 750
Balance -410 / -410 450 / 450
Review of Systems
-
All other systems: Reviewed and negative
Physical Exam
-
General: Well Developed, Well Nourished and No Apparent Distress
HEENT: Normocephalic and Atraumatic; Negative Oxygen
Respiratory: Clear to Auscultation; Negative Wheezes or Rhonchi
Cardiac: Regular Rhythm and S1/S2; Negative Murmur
GI: Soft, Nontender, Nondistended and Normal Bowel Sounds
Musculoskeletal: No Clubbing, No Cyanosis and No Edema
Neuro: Awake and Alert
Psych: Calm
[2024-12-27 11:05] VITALS: BP 131/71
[2024-12-27 11:47] VITALS: BP 147/75; PULSE 116; O2SAT 93
[2024-12-27 11:48] VITALS: BP 147/75; PULSE 118; O2SAT 93
[2024-12-27 12:36] LABS: Glucose - Point of Care 413 mg/dl (70-99)
[2024-12-27 13:18] LABS: Glucose 378 mg/dl (70-99)
[2024-12-27] MEDS: NOVOLOG FLEXPEN-LOW RESISTANCE 5 UNITS SC (13:26)
[2024-12-27] MEDS: LOPRESSOR 5 MG IV (13:26)
--- NOTE | 2024-12-27 14:12 | VNURNOTE ---
Home Health Liaison met with patient and spouse at bedside to discuss [facility] nurse/therapy, visits, schedule and homebound status. Patient is agreeable and understands that visits at home will be 2-3 x per week to assess and teach medical
management.
Patient is aware that [facility] will contact them for start of care in 1-2 days after discharge from . Provided contact number for [facility].
[facility] referral completed in [facility].
[2024-12-27 15:29] VITALS: BP 125/61
[2024-12-27 15:34] LABS: Glucose - Point of Care 316 mg/dl (70-99)
[2024-12-27 17:15] LABS: Glucose - Point of Care 277 mg/dl (70-99)
[2024-12-27] MEDS: LOVENOX 30 MG SC (17:42)
[2024-12-27] MEDS: NOVOLOG FLEXPEN-HIGH RESISTANCE 7 UNITS SC (17:49)
[2024-12-27] MEDS: AMARYL 1 MG PO (18:37)
--- NOTE | 2024-12-27 19:19 | PTCARENOTE ---
late entry: HR noted to be 110-120s during routine vitals. Patient asymptomatic and denied pain. During PT, HR noted to be in 140s. EKG obtained, showing sinus tach, 120s. Dr. Patel aware. ordered x1 dose lopressor. Post administration HR in
90s, BP stable.
[2024-12-27 21:26] LABS: Glucose - Point of Care 377 mg/dl (70-99)
[2024-12-27 23:00] VITALS: BP 128/57
[2024-12-28] MEDS: SYNTHROID 75 MCG PO (05:33)
[2024-12-28 06:48] LABS: Hematocrit 31.7 % (39.0-52.0); Hemoglobin 10.8 g/dL (13.0-18.0); Mean Corp Hgb Conc. 34.1 g/dL (33.0-37.0); Mean Corpuscular Volume 89.3 fL (80.0-94.0); Platelet Count 135 10^3/uL (130-400); Red Cell Dist. Width 12.5 % (11.5-14.5)
[2024-12-28 07:00] VITALS: BP 144/70
[2024-12-28 07:11] LABS: Blood Urea Nitrogen 45 mg/dl (9-20); Calcium 8.5 mg/dl (8.4-10.2); Carbon Dioxide 27 mmol/L (22-30); Chloride 105 mmol/L (98-107); Estimated Creatinine Clearance 41 ml/min; Glucose 224 mg/dl (70-99); Magnesium 1.6 mg/dl (1.6-2.3); Potassium 3.9 mmol/L (3.5-5.1); Sodium 135 mmol/L (135-145); eGFR 49.56
[2024-12-28 08:00] LABS: Glucose - Point of Care 254 mg/dl (70-99)
[2024-12-28] MEDS: AMARYL 1 MG PO ×2 (08:28→12:56)
[2024-12-28] MEDS: COLACE 100 MG PO ×2 (08:28→20:18)
[2024-12-28] MEDS: NOVOLOG FLEXPEN-HIGH RESISTANCE 7 UNITS SC (08:29)
[2024-12-28] MEDS: MILK OF MAGNESIA 30 ML PO (09:01)
[2024-12-28] MEDS: GLUCOPHAGE 500 MG PO (09:01)
--- NOTE | 2024-12-28 10:47 | PN.CDI ---
CDI
- -
CDI:
Physician Documentation Request
Admit Date: 12/25/24 17:09
Dear Doctor Liliana,
Please review the following and provide your response in the progress notes.
Clinical Indicators:
Pt admitted with Left intertrochanteric hip fracture; postop day 1 status post left hip hemiarthroplasty.
Laboratory Tests
12/25/24 12/26/24 12/27/24
17:16 06:41 07:01
Creatinine 1.2 1.2 1.5 H
Clarify which of the following accurately represents the patient's renal status:
Acute kidney injury (non-traumatic) - see criteria
Insignificant elevation of creatinine
Other
Criteria for ALICE*
1 Increase in serum creatinine by > or = to 0.3 mg/dL (> or = to 26.5 micromol/L) within 48 hours, OR
2 Increase in serum creatinine to > or = to 1.5 times baseline, which is known or presumed to have occurred within 7 days, OR
3 Urine volume < 0.5 nL/kg/hour for six hours
Use of terms such as suspected, likely, concern for, or probable (associated with a specific diagnosis that is being evaluated, monitored, or treated as if it exists) are acceptable and can be coded in the inpatient setting, when documented at the
time of discharge.
Thank you,
Stephanie Will RN, BSN
CDI Specialist
[place] [facility]
Please use your independent medical judgment in providing your response.
*Source: Kidney Disease: Improving Global Outcomes (KDIGO) 2012
--- NOTE | 2024-12-28 11:01 | W.PN.HOSP.TC ---
Today's Communication/Plan
-
apprec DM CLOTHING PRESSER
start toprol XL 12.5 mg
follow creat
anticipate d/c tomorrow
Assessment / Plan
Assessment / Plan
pt is an 84 year old male
mechanical fall with traumatic Left intertrochanteric hip fracture--s/p OR for left hemiarthroplasty--follow up with ortho--apprec input--Pain control with Tylenol, Dilaudid as needed
tachycardia--will start low dose oral toprol--possibly due to anxiety and wanting to go home
anemia--likely due to long bone fracture and dilution from IVF
Essential hypertension- Continue hydrochlorothiazide, losartan
ALICE--likely from surgery, NPO, meds, etc--holding metformin
Type 2 diabetes--restart glimepiride, metformin on hold due to ALICE--Insulin sliding scale--await DM CLOTHING PRESSER input
Thyroid nodule status post resection/hypothyroidism- Continue levothyroxine
History of benign brainstem lesion
code status--Full code
DVT prophylaxis� lovenox x 28 days per ortho--will need teaching
anticipate d/c tomorrow if all improved
Anticipated Discharge: Within 24 hours
Subjective/Interval History
-
Date of Service: December 28, 2024
pt at bedside--updated pt and about why no discharge
denies pain or anxiety
Objective Data
-
Labs:
Laboratory Results
12/28/24
06:24
WBC 8.4
Hgb 10.8 L
Hct 31.7 L
Plt Count 135
Sodium 135
Potassium 3.9
Chloride 105
Carbon Dioxide 27
BUN 45 H
Creatinine 1.4 H
Glucose 224 H
Calcium 8.5
Vital Signs:
max temp for 24 hours
12/27/24
23:00
Temp 99.8 F
Vital Signs
Temp Pulse Resp BP Pulse Ox
98 F 110 17 144/70 97
12/28/24 07:00 12/28/24 07:00 12/28/24 07:00 12/28/24 07:00 12/28/24 07:00
I&O
12/27/24 12/28/24 12/29/24
06:59 06:59 06:59
Intake Total 1200 / 1200 1200 / 1200
Output Total 750 / 750 575 / 575 200 / 200
Balance 450 / 450 625 / 625 -200 / -200
Review of Systems
-
All other systems: Reviewed and negative
Physical Exam
-
General: Well Developed, Well Nourished and No Apparent Distress
HEENT: Normocephalic and Atraumatic
Respiratory: Clear to Auscultation; Negative Wheezes or Rhonchi
Cardiac: Regular Rhythm, S1/S2 and Tachycardic; Negative Murmur
GI: Soft, Nontender, Nondistended and Normal Bowel Sounds
Musculoskeletal: No Clubbing, No Cyanosis and No Edema
Skin: Warm
Neuro: Awake
--- NOTE | 2024-12-28 11:28 | CM ---
Patient seen at bedside with present and physician. Patient plan is for discharge home with [facility] to follow and script for walker provided to patient nurse. Patient given IMM and signed form placed on chart. CM will continue to follow for
discharge planning needs.
Plan; home with [facility] and walker script provided to patient nursing
--- NOTE | 2024-12-28 11:42 | PN.DE.MGMTRT ---
Insulin Management
- -
12/28/2024 Diabetes Management Consult
Patient admitted 12/25 L hip fracture s/p fall; POD 2 s/p L hip hemiarthroplasty. PMH HTN, diabetes. Prior to admission was taking glimepiride 1 mg BID and metformin 500 mg 1 with breakfast and 2 with dinner. A1C on admission 7.4%, cr 1.4, eGFR
49.56.
Patient is awake alert and oriented able to discuss diabetes care. States he has had diabetes 22 years, sees his primary care doctor for ongoing care. States he has a meter and tests fasting each morning, usually runs 120 to 150 and before dinner
which usually runs 170. He states he usually requires insulin when in the hospital. at bedside and very supportive.
He has been receiving glimepiride 1 mg BID, glucose range yesterday 277 to 413. Will increase glimepiride to 2 mg BID (one extra mg now and start 2 mg with dinner)
Will resume metformin 500 mg in AM and 1000 mg with dinner. Discussed with patient and if glucose is not well controlled overnight may require he start long acting insulin in AM until stress of surgery and incident are resolved. Advised at
discharge to monitor glucose more frequently and report to primary doctor if glucose consistently > 180.
Discussed with nurse.
Will follow
Diabetes History
- -
Type of Diabetes: 2
Pre-Admission Diabetes Regimen
12/28/24
06:24
Creatinine 1.4 H
Insulin Pump Settings
IP Diabetes Regimen
12/27/24 12/27/24 12/27/24
12:34 12:44 15:32
Glucose 378 H
POC Glucose 413 H 316 H
12/27/24 12/27/24 12/28/24
17:13 21:25 06:24
Glucose 224 H
POC Glucose 277 H 377 H
12/28/24
07:58
Glucose
POC Glucose 254 H
Meal type: Lunch
Meal type: Breakfast
Amount consumed: 100%
Amount consumed: 100%
Patient Education
[2024-12-28 12:05] VITALS: BP 115/61; PULSE 109
[2024-12-28 12:06] VITALS: BP 111/67; PULSE 109; O2SAT 97
[2024-12-28 12:55] LABS: Glucose - Point of Care 311 mg/dl (70-99)
[2024-12-28] MEDS: NOVOLOG FLEXPEN-HIGH RESISTANCE 10 UNITS SC (12:56)
[2024-12-28] MEDS: TOPROL XL 12.5 MG PO (12:56)
[2024-12-28 15:00] VITALS: BP 131/65
[2024-12-28] MEDS: AMARYL 2 MG PO (17:45)
[2024-12-28 17:46] LABS: Glucose - Point of Care 172 mg/dl (70-99)
[2024-12-28] MEDS: LOVENOX 40 MG SC (17:46)
[2024-12-28] MEDS: NOVOLOG FLEXPEN-HIGH RESISTANCE 2 UNITS SC (17:46)
[2024-12-28] MEDS: GLUCOPHAGE 1000 MG PO (17:46)
[2024-12-28 21:42] LABS: Glucose - Point of Care 209 mg/dl (70-99)
[2024-12-28 23:21] VITALS: BP 137/66
[2024-12-29] MEDS: SYNTHROID 75 MCG PO (05:57)
[2024-12-29 07:42] LABS: Glucose - Point of Care 166 mg/dl (70-99)
[2024-12-29 07:43] LABS: Hematocrit 30.3 % (39.0-52.0); Hemoglobin 10.5 g/dL (13.0-18.0); Mean Corp Hgb Conc. 34.7 g/dL (33.0-37.0); Mean Corpuscular Volume 89.1 fL (80.0-94.0); Platelet Count 142 10^3/uL (130-400); Red Cell Dist. Width 12.6 % (11.5-14.5)
[2024-12-29 07:45] VITALS: BP 146/67
--- NOTE | 2024-12-29 07:50 | PN.DE.MGMTRT ---
Insulin Management
- -
12/29/2024: Diabetes Management Follow up
Patient admitted 12/25 L hip fracture s/p fall; POD 2 s/p L hip hemiarthroplasty. PMH: HTN, diabetes. Prior to admission was taking glimepiride 1 mg BID and metformin 500 mg 1 with breakfast and 2 with dinner. States he has had diabetes 22 years,
sees his primary care doctor for ongoing care. States he has a meter and tests fasting each morning, usually runs 120 to 150 and before dinner which usually runs 170. He states he usually requires insulin when in the hospital. A1C on admission
7.4%, cr 1.4, eGFR 49.56-->1.3 today
Patient is awake alert and oriented, sitting up in chair, talking on phone, offers no complaints, able to discuss diabetes care.
He was noted for persistent hyperglycemia yesterday-->Glimepiride was increased to 2 mg BID and Metformin to 1000mg BID.
Glucose has improved t range of 172 to 311.
Will make no changes to current regimen: Glimepiride 2 mg BID and Metformin 1000 mg BID.
Advised at discharge to monitor glucose more frequently and report to primary doctor if glucose consistently > 180.
Discussed with nurse. Will cont to follow
Diabetes History
- -
Type of Diabetes: 2 requiring insulin
Pre-Admission Diabetes Regimen
Insulin Pump Settings
IP Diabetes Regimen
12/28/24 12/28/24 12/28/24
07:58 12:54 17:39
POC Glucose 254 H 311 H 172 H
12/28/24 12/29/24
21:38 07:39
POC Glucose 209 H 166 H
Meal type: Lunch
Meal type: Breakfast
Amount consumed: 100%
Amount consumed: 100%
Patient Education
[2024-12-29] MEDS: GLUCOPHAGE 500 MG PO (07:54)
[2024-12-29] MEDS: COLACE 100 MG PO (07:54)
[2024-12-29] MEDS: AMARYL 2 MG PO (07:54)
[2024-12-29] MEDS: NOVOLOG FLEXPEN-HIGH RESISTANCE 2 UNITS SC (07:55)
[2024-12-29] MEDS: TOPROL XL 12.5 MG PO (07:55)
[2024-12-29 08:09] LABS: Blood Urea Nitrogen 42 mg/dl (9-20); Calcium 8.7 mg/dl (8.4-10.2); Carbon Dioxide 28 mmol/L (22-30); Chloride 104 mmol/L (98-107); Estimated Creatinine Clearance 44 ml/min; Glucose 148 mg/dl (70-99); Magnesium 1.7 mg/dl (1.6-2.3); Potassium 3.9 mmol/L (3.5-5.1); Sodium 138 mmol/L (135-145); eGFR 54.17
[2024-12-29 09:18] VITALS: BP 130/66; PULSE 105; O2SAT 93
--- NOTE | 2024-12-29 11:09 | CM ---
Patient seen at bedside with physician, and on . Patient plan is for discharge home today with [facility] to follow. IMM completed 12/28 and patient home with [facility] made aware. CM will continue to follow for discharge planning needs.
Plan; home with [facility] to follow
--- NOTE | 2024-12-29 11:52 | W.PN.HOSP.TC ---
Today's Communication/Plan
-
d/c
Assessment / Plan
Assessment / Plan
pt is an 84 year old male
mechanical fall with traumatic Left intertrochanteric hip fracture--s/p OR for left hemiarthroplasty--follow up with ortho--apprec input--Pain control with Tylenol, Dilaudid as needed
tachycardia--will start low dose oral toprol--possibly due to anxiety and wanting to go home
anemia--likely due to long bone fracture and dilution from IVF
Essential hypertension- Continue hydrochlorothiazide, losartan
ALICE--likely from surgery, NPO, meds, etc--holding metformin
Type 2 diabetes--restart glimepiride, metformin on hold due to ALICE--Insulin sliding scale--await DM WAREHOUSE PERSON input
Thyroid nodule status post resection/hypothyroidism- Continue levothyroxine
History of benign brainstem lesion
code status--Full code
DVT prophylaxis� lovenox x 28 days per ortho--will need teaching
d/c
Anticipated Discharge: Today
Subjective/Interval History
-
Date of Service: December 29, 2024
pt ready for d/c
Objective Data
-
Labs:
Laboratory Results
12/29/24
07:03
WBC 6.9
Hgb 10.5 L
Hct 30.3 L
Plt Count 142
Sodium 138
Potassium 3.9
Chloride 104
Carbon Dioxide 28
BUN 42 H
Creatinine 1.3
Glucose 148 H
Calcium 8.7
Vital Signs:
max temp for 24 hours
12/28/24
23:21
Temp 99.4 F
Vital Signs
Temp Pulse Resp BP Pulse Ox
98.5 F 97 16 146/67 96
12/29/24 07:45 12/29/24 07:55 12/29/24 07:45 12/29/24 07:55 12/29/24 07:45
I&O
12/28/24 12/29/24 12/30/24
06:59 06:59 06:59
Intake Total 1200 / 1200 1260 / 1260 360 / 360
Output Total 575 / 575 1200 / 1200
Balance 625 / 625 60 / 60 360 / 360
Review of Systems
-
All other systems: Reviewed and negative
Physical Exam
-
General: Well Developed, Well Nourished and No Apparent Distress
HEENT: Normocephalic and Atraumatic
Respiratory: Clear to Auscultation; Negative Wheezes or Rhonchi
Cardiac: Regular Rhythm and S1/S2; Negative Murmur
GI: Soft, Nontender, Nondistended and Normal Bowel Sounds
Musculoskeletal: No Clubbing, No Cyanosis and No Edema
Neuro: Awake
Psych: Calm
--- NOTE | 2024-12-29 15:38 | W.DCSUMMARY ---
Discharge Summary
Discharge Data
Date of Admission: 12/25/24
Date of Discharge: 12/29/24
-
Pending Results: No
Hospital Course
Primary care physician : Israel Powell
Principal Discharge diagnosis : Mechanical fall with traumatic left intertrochanteric hip fracture status post left hemiarthroplasty, tachycardia, anemia, acute kidney injury
Chronic Discharge diagnosis : Essential hypertension, type 2 diabetes, thyroid nodule status post resection/hypothyroidism, history of benign brainstem lesion
Hospital Course : Patient was an 84-year-old male who presented after a trip and fall in the garage. He denies any dizziness, or syncope. He states he landed on his left hip. He was found to have a left hip fracture. Patient was admitted.
Problem #1: Mechanical fall with traumatic left intertrochanteric hip fracture status post left hemiarthroplasty. Patient was found to have a left hip fracture. Orthopedics was consulted and the patient went to the operating room for left
hemiarthroplasty. Their recommendation is for Lovenox subcu daily for 28 days for DVT prophylaxis. Pain control has been acceptable. Physical therapy and Occupational Therapy have seen the patient and they are recommending home with therapy that
way. He does not need a senior living facility. He is stable for discharge at this time.
Problem #2: Tachycardia. This is unclear why he is tachycardic. He denies pain or anxiety. We have started low-dose Toprol XL 12.5 mg daily and his blood pressure and heart rate are better.
Problem #3: Anemia. Patient's hemoglobin dropped from 13.9 on the day of admission to 10.5 on the day of discharge. There was no active bleeding noted. This is likely due to the long bone fracture and IV fluid administration with dilutional
effect.
Problem #4: Acute kidney injury. Patient's creatinine was 1.1 on admission. He bumped to 1.5. Metformin was held. Losartan was held. He was given IV fluids. This was likely from a combination of surgery and medications as well as n.p.o.
status. Creatinine has improved to 1.3 on the day of discharge. Medications have been restarted.
Problem #5: All other medical issues. These include Essential hypertension, type 2 diabetes, thyroid nodule status post resection/hypothyroidism, history of benign brainstem lesion. In regards to his diabetes, patient's glucoses were running high
here. Both glimepiride and metformin were on hold. Glimepiride was restarted by myself and diabetic nurse practitioners were consulted for assistance as metformin needed to be held due to the acute kidney injury. Once his creatinine improved
metformin was restarted. He was covered with sliding scale insulin in the meantime.
Patient is stable for discharge home at this time. If there are any questions regarding this dictation or his hospital stay, please do not hesitate to call. Our office number is [phone].
Time for discharge 31 minutes.
Discharge Plan
-
Patient Disposition: Home with Home Care
Discharge Diagnosis/Procedures: mechanical fall with left hip fracture status post left hemiarthroplasy, tachycardia, acute kidney injury, essential hypertension, type 2 diabetes mellitus uncontrolled, thyroid nodule, history of benign brainstem
lesion
Condition: Good
Diet: As tolerated
Activity: Other activity
Additional Activity: as per orthopedics
Driving Restrictions: No driving
Bathing Restrictions: None
Other Services: VN, PT and OT
Referrals:
Israel Powell MD [Family Provider, Family Practice] - in less than 1 week
Dickson Small MD [Active, Orthopedics]
Referral Note: as directed
Additional Discharge Medication Instructions: your diabetic meds have been changed to glimepiride 2mg twice daily and metformin 1000mg twice daily
Prescriptions:
New
docusate sodium 100 mg Capsule
100 mg PO BID Qty: 0 0RF
glimepiride 1 mg Tablet
2 mg PO BID@0800,1700 Qty: 60 0RF
metformin 500 mg Tablet
1,000 mg PO BID Qty: 60 0RF
enoxaparin 40 mg/0.4 mL Syringe
40 mg SC QPM 28 Days Qty: 11.2 0RF
metoprolol succinate 25 mg Tablet Extended Release 24 Hr
12.5 mg PO DAILY Qty: 30 0RF
acetaminophen 325 mg Tablet
650 mg PO Q4HPRN PRN (Reason: mild pain/REHMAN/temp> 100.4F) Qty: 0 0RF
Continued
levothyroxine 75 MCG tablet
75 mcg PO DAILY@06
hydrochlorothiazide 25 MG tablet
25 mg PO DAILY
losartan 100 mg tablet
100 mg PO DAILY
testosterone 20.25 mg/1.25 gram (1.62 %) gel in metered-dose pump
1 pump topical DAILY
Discontinued
metformin 500 MG tablet
500 mg PO TID @ 0800,1200,1700
glimepiride 1 MG tablet
1 mg PO BID
Discharge Orders:
Discharge Patient (As Directed); Ordered 12/29/24
Ordered By: Carlita Patel
Discharge Date and Time
Discharge Date/Time: 12/29/24 11:45
Print Language: GERMAN
== END 2024-12-29 11:45 | disposition home health service (06) | DRG 522 ==
LOC: 2 SOUTH 17:09
PROVIDERS: Hospitalist; ADMITTING PHYSICIAN Hospitalist; ATTENDING PHYSICIAN Internal Medicine; CONSULT PHYSICIAN Orthopaedic Surgery; EMERGENCY PHYSICIAN Emergency Medicine; REFERRING PHYSICIAN Family Medicine
PROC: 0SRS0J9 Replacement of Left Hip Joint, Femoral Surface with Synthetic Substitute, Cemented, Open Approach (ICD-10-PCS; 2024-12-26)
DX: S72.142A Displaced intertrochanteric fracture of left femur, initial encounter for closed fracture (principal); N17.9 Acute kidney failure, unspecified; E11.9 Type 2 diabetes mellitus without complications; I10 Essential (primary) hypertension; E03.9 Hypothyroidism, unspecified; E04.1 Nontoxic single thyroid nodule; G93.89 Other specified disorders of brain; R00.0 Tachycardia, unspecified; D64.9 Anemia, unspecified; W10.9XXA Fall (on) (from) unspecified stairs and steps, initial encounter; Y92.015 Private garage of single-family (private) house as the place of occurrence of the external cause; Y93.01 Activity, walking, marching and hiking; Z87.891 Personal history of nicotine dependence; Z79.899 Other long term (current) drug therapy; Z79.890 Hormone replacement therapy; Z79.84 Long term (current) use of oral hypoglycemic drugs
CPT/HCPCS: 36415; 73502; 80048; 80053; 80061; 82947; 82962; 83036; 83735; 84403; 84443; 85025; 85027; 93005; 97116; 97162; 97166; 97530; 97535; 99284; C1713; C1776

== ENCOUNTER → 2025-01-28 09:43 | Outpatient (REF) | payer MEDICARE, SELFPAY ==
[2025-01-28 11:53] LABS: PSA, Total - Diagnostic 1.81 ng/ml (0.0-4.0)
== END ==
LOC: REG 09:43
PROVIDERS: ATTENDING PHYSICIAN Specialist; FAMILY PHYSICIAN Family Medicine
DX: R97.20 Elevated prostate specific antigen [PSA] (principal)
CPT/HCPCS: 36415; 84153